=== PATIENT | female | born 1960 | race African-American/Black ===

== ENCOUNTER 2016-04-16 15:42 | Emergency (ER) | payer OTHER ==
[~2016-04-16 15:42] MED LIST: ACTOS30 PO; ALLEGRA180 PO; ASABAYER PO; AUG875 PO; BACDS PO; BENICAR20 PO; CHEMO; CHEMOTHERAPY IV; CLARIT10 PO; CLINDAGEL1 % TOP; CORTISPORIN OPH; DSS PO; DYAZIDE1 CAP PO; FLONASE NAS; FLUCON2 PO; FOLIC PO; FORTAMET500 MG PO; GLUCOPHAGE1000 MG PO; GLUCPH PO; HALF81 PO; HEMOCYTET PO; HYDREA PO; HYDROCHLOROT25 MG PO; KLOR-CON M1010 MEQ PO; LEVAQUIN750 MG PO; LISINOPRIL40 MG PO; LOP50 PO; MAX25 PO; MULTIPLE VIT; NORV10 PO; P10 PO; P20 PO; P5 PO; PROAIR HFA INH; SENTAB PO; Z-PAK PO; Z300 PO; ZOFRAN4 PO; ZOVIRAX400 MG; ZOVIRAX400 MG PO
[2016-04-16 18:34] LABS: ALLENS TEST Pos; BE (BASE EXCESS) 2.8 MEQ/L (0 +/- 2.5); CARBOXYHEMOGLOBIN 1.9 % (0-3); HCO3 (ACTUAL BICARBONATE) 26.7 MEQ/L (23-27); HEMOBLOGIN CONTENT 6.6 G/DL (12-16); INSTRUMENT SERIAL # 8087; METHEMOGLOBIN 1.6 % (0-3); PCO2 (CO2 TENSION) 38 MMHG (35-45); PO2 (O2 TENSION) 54 MMHG (79-93); SAMPLE Arterial; pH 7.47 (7.37-7.43)
[2016-04-16 19:40] LABS: ASCORBIC ACID (UR NOT ORDER) NEG (NEG); BILIRUBIN, URINE NEGATIVE (NEG); ER URINALYSIS TAT 0 Hrs 25 Mins; KETONE, URINE NEGATIVE (NEG); LEUKOCYTE ESTERASE(NOT OR LARGE (NEG); NITRITE (URINE) NEG (NEG); WBC (NOT ORDERED) (RFLEX) 4 (0-5)
[2016-04-16 20:12] LABS: INFLUENZA A SCREEN NEGATIVE (NEGATIVE); INFLUENZA B SCREEN NEGATIVE (NEGATIVE)
[2016-04-16 21:09] LABS: BASOPHILS 0.3 %; BASOPHILS ABSOLUTE 0.31 10/3/uL (0.0-0.16); EOSINOPHILS 0 %; EOSINOPHILS ABSOLUTE 0.01 10/3/uL (0.0-0.53); MEAN CORPUSCULAR HEMOGLOB 27.1 pg (26.0-34.0); NUCLEATED RED BLOOD CELLS 0.3 /100WBC (0-0); RBC DISTRIBUTION WIDTH 17.7 % (12.0-16.0)
[2016-04-16 21:11] LABS: ER CBC TAT 0 Hrs 16 Mins; HEMATOCRIT 18.4 % (36.0-48.0); HEMOGLOBIN 5.7 g/dL (12.0-16.0); MEAN CORPUSCULAR VOLUME 87.6 fL (80-100); PLATELET COUNT 17 10/3/uL (150-400); WHITE BLOOD CELLS 94.4 10/3/uL (4.5-10.5)
[2016-04-16 21:12] LABS: MANUAL DIFF NO %
[2016-04-16 21:16] LABS: ALKALINE PHOSPHATASE 164 U/L (45-117); CALCIUM, SERUM 9.2 MG/DL (8.5-10.4); CHLORIDE, SERUM 94 MMOL/L (96-112); CO2 (CARBON DIOXIDE) 27 MMOL/L (24-34); CREATININE 1.12 MG/DL (0.55-1.02); GFR AFRICAN AMERICAN 64 ML/MIN (>=60); GFR NON AFRICAN AMERICAN 55 ML/MIN (>=60); GLUCOSE, SERUM 102 MG/DL (60-99); SGOT(AST) 15 U/L (5-40); SGPT(ALT) 15 U/L (5-65); SODIUM, SERUM 135 MMOL/L (135-148); TOTAL PROTEIN 7.5 G/DL (6.0-8.5)
[2016-04-16 21:17] LABS: A/G RATIO 0.7 (0.7-1.9); BUN (BLOOD UREA NITROGEN) 12 MG/DL (6-23); GLOBULIN 4.5 G/DL (2.5-4.1); POTASSIUM, SERUM 2.7 MMOL/L (3.5-5.3); TOTAL BILIRUBIN 0.6 MG/DL (0-1.2)
[2016-04-16 21:30] LABS: ANISOCYTOSIS 1+ (5-10/OIF) (0-5/OIF); BAND NEUTROPHILS 3 %; ER DIFF TAT 0 Hrs 35 Mins; LYMPHOCYTES 10 %; LYMPHOCYTES ABSOLUTE (CALC) 9.44 10/3/uL (0.67-4.30); MONOCYTES ABSOLUTE (CALC) 75.52 10/3/uL (0.21-1.20); NEUTROPHILS ABSOLUTE (CALC) 9.44 10/3/uL (2.02-8.40); SEGMENTED NEUTROPHIL (0) 7 %; TOTAL NUCLEATED CELLS 100
[2016-04-16 21:31] LABS: POIKILOCYTOSIS 1+ (5-10/OIF) (0-5/OIF)
[2016-04-16 21:36] LABS: MONOCYTES 80 %
[2016-04-16 21:37] LABS: PATH REVIEW YES
[2016-04-17 10:58] LABS: PATH REVIEW SEE PATHOLOGY REPORT
[2016-04-22] MEDS ORDERED: HYDROCHLOROT25 MG PO (14:08)
[2016-04-22] MEDS ORDERED: GLUCPH PO (14:09)
[2016-04-22] MEDS ORDERED: NORV10 PO (14:09)
[2016-04-22] MEDS ORDERED: LOP50 PO (14:09)
[2016-04-22] MEDS ORDERED: TESS PO (14:09)
[2016-04-22] MEDS ORDERED: NOVOLOG SC (14:10)
[2016-04-22] MEDS ORDERED: SENTAB PO (14:10)
[2016-04-22] MEDS ORDERED: ZOFRAN4 PO (14:10)
[2016-04-22] MEDS ORDERED: KDUR10 PO (14:10)
[2016-04-22] MEDS ORDERED: KDUR20 PO (14:11)
[2016-04-22] MEDS ORDERED: Z-PAK PO (14:13)
== END 2016-04-16 23:33 | disposition home or self-care (01) ==
LOC: ER 15:42
PROVIDERS: Emergency Medicine
DX: J18.9 Pneumonia, unspecified organism (principal); C95.90 Leukemia, unspecified not having achieved remission; D64.9 Anemia, unspecified; Z95.0 Presence of cardiac pacemaker; E11.9 Type 2 diabetes mellitus without complications; Z79.899 Other long term (current) drug therapy
CPT/HCPCS: 36600; 71020; 80053; 81001; 82805; 85025; 87040; 87077; 87086; 87186; 87804; 93005; 99285; A9270-GY